=== PATIENT | female | born 1955 | race Caucasian/White ===

== ENCOUNTER 2019-01-06 18:26 | Emergency (ER) | payer MEDICARE ==
[~2019-01-06] VITALS: Ht 162.6 cm; Wt 82.0 kg
[2019-01-06 18:37] VITALS: BP 157/73
== END 2019-01-06 18:51 | disposition left against medical advice (07) ==
LOC: ER 18:26
DX: R07.9 Chest pain, unspecified (principal); Z53.21 Procedure and treatment not carried out due to patient leaving prior to being seen by health care provider